=== PATIENT | male | born 1945 | race Caucasian/White ===

== ENCOUNTER 2023-05-03 15:50 | Outpatient (CLI) | payer MEDICARE ==
[2023-05-03 16:47] LABS: BASOPHILS # (AUTO) 0.1 X10'3 (0-0.2); BASOPHILS % (AUTO) 0.7 % (0-1); EOSINOPHILS # (AUTO) 0.2 X10'3 (0-0.9); EOSINOPHILS % (AUTO) 1.8 % (0-6); HEMATOCRIT 43.8 % (42.0-52.0); HEMOGLOBIN 14.7 g/dl (14.0-17.9); MEAN CORPUSCULAR HGB CONC 33.5 g/dL (33.0-36.5); MEAN CORPUSCULAR VOLUME 95.5 FL (78-98); MEAN PLATELET VOLUME 8.2 FL (7.4-10.4); MONOCYTES # (AUTO) 0.9 X10'3 (0-0.9); MONOCYTES % (AUTO) 9.4 % (2-12); NEUTROPHILS # (AUTO) 5.3 X10'3 (1.8-7.7); NEUTROPHILS % (AUTO) 56.1 % (42-75); PLATELET COUNT 251 X10'3 (140-440); RED BLOOD COUNT 4.59 X10'6 (4.70-6.10); RED CELL DISTRIBUTION WIDTH 13.9 % (11.5-14.5); WHITE BLOOD COUNT 9.4 X10'3 (4.5-11.0)
[2023-05-03 16:57] LABS: APTT 30 SECONDS (22-32)
[2023-05-03 17:03] LABS: ALBUMIN 3.7 G/DL (3.4-5.0); ANION GAP 10 (8-16); BLOOD UREA NITROGEN 30 MG/DL (7-18); BUN/CREATININE RATIO 30.3 (10.0-20.0); CALCIUM 9.4 MG/DL (8.5-10.1); CHLORIDE 105 MMOL/L (99-107); CHOL/HDL RATIO 5.7 (0.00-4.99); CHOLESTEROL 226 MG/DL (0-200); CREATININE 0.99 MG/DL (0.60-1.10); GLUCOSE 136 MG/DL (70-104); HDL CHOLESTEROL 40 MG/DL (35-60); LDL CHOLESTEROL 136 MG/DL (50-100); POTASSIUM 4.3 MMOL/L (3.5-5.1); SODIUM 140 MMOL/L (135-145); TOTAL CARBON DIOXIDE 25.5 MMOL/L (24-32); TRIGLYCERIDES 178 MG/DL (20-135); eGFR 73 ML/MIN
== END 2023-05-03 23:59 | disposition home or self-care (01) ==
LOC: LAB 15:50
PROVIDERS: ATTEND Internal Medicine Interventional Cardiology
DX: Z01.810 Encounter for preprocedural cardiovascular examination (principal); E78.5 Hyperlipidemia, unspecified; I11.9 Hypertensive heart disease without heart failure
CPT/HCPCS: 36415; 80048; 80061; 85025; 85610; 85730

== ENCOUNTER 2023-05-07 13:24 | Day surgery (SDC) | payer MEDICARE ==
[2023-05-07] VITALS (7 sets, daily range): BP systolic 147–171; BP diastolic 78–98; PULSE 71–81; RESP 16; TEMP 97.9; O2SAT 93–97
[~2023-05-07] VITALS: Ht 177.8 cm; Wt 103.2 kg
[2023-05-07] MEDS ORDERED: normal saline 1,000 ML IV SCH (13:45)
[2023-05-07] MEDS ORDERED: diphenhydrAMINE 25mg capsule PO PRN (13:45)
[2023-05-07] MEDS ORDERED: LORazepam 0.5 MG tablet PO PRN (13:45)
[2023-05-07] MEDS ORDERED: METF-900 PO (14:06)
[2023-05-07] MEDS ORDERED: GLIM4TAB7 PO (14:06)
[2023-05-07] MEDS ORDERED: PIOG45TA65 PO (14:06)
[2023-05-07] MEDS ORDERED: LISI20TA28 PO (14:06)
[2023-05-07] MEDS ORDERED: DAPA10TA PO (14:06)
[2023-05-07] MEDS ORDERED: fentaNYL/PF 50MCG/1 ML 2ML syringe ONE (14:42)
[2023-05-07] MEDS ORDERED: LIDOcaine 1% (10mg/ml) 2ml vial ONE (14:42)
[2023-05-07] MEDS ORDERED: heparin 1,000unit/ml 10ml vial 10 ML ONE (14:42)
[2023-05-07] MEDS ORDERED: iohexol 350MG/ML 100ml bottle IV ONE (14:42)
[2023-05-07] MEDS ORDERED: midazolam 1 mg/ML 2ml injection ONE (14:42)
[2023-05-07] MEDS ORDERED: verapamil 2.5 mg/ml inj IV ONE (14:43)
[2023-05-07] MEDS ORDERED: nitroGLYCERIN 500mcg/5mL D5W 5 ML IV ONE (14:43)
[2023-05-07] MEDS ORDERED: HYDROcodone/acetaminophen 10/325mg tab PO PRN (15:30)
[2023-05-07] MEDS ORDERED: HYDROcodone/acetaminophen 5mg/325mg tablet PO PRN (15:30)
== END 2023-05-07 17:05 | disposition home or self-care (01) ==
LOC: SSTAY O 13:24
PROVIDERS: ATTEND Student in an Organized Health Care Education/Training Program
DX: R94.39 Abnormal result of other cardiovascular function study (principal); I25.10 Atherosclerotic heart disease of native coronary artery without angina pectoris; I10 Essential (primary) hypertension; E78.5 Hyperlipidemia, unspecified; E11.9 Type 2 diabetes mellitus without complications; M10.9 Gout, unspecified; Z79.84 Long term (current) use of oral hypoglycemic drugs; Z79.899 Other long term (current) drug therapy
CPT/HCPCS: 82948; 93005; 93458; 99152; J1644; J2250; J3010; J3490; J7030; Q9967; A6258; A6402; C1751; C1894